=== PATIENT | male | born 1965 | race Two or more races ===

== ENCOUNTER 2017-06-26 23:53 | Emergency (ER) | payer SELFPAY ==
[~2017-06-26] VITALS: Ht 162.6 cm; Wt 49.9 kg
--- NOTE | 2017-06-27 00:06 | NUR ---
Unable to obtain medical history, allergies and medications from pt at this time.
[2017-06-27 00:33] LABS: BASOPHILS % (AUTO) 0.3 % (0.0-2.0); EOSINOPHILS # (AUTO) 0.1 K/uL (0.0-0.7); EOSINOPHILS % (AUTO) 1.7 % (0.0-7.0); HEMATOCRIT 47.4 % (36.7-47.1); HEMOGLOBIN 16.4 g/dL (12.5-16.3); LYMPHOCYTES # (AUTO) 2.3 K/uL (20.0-40.0); LYMPHOCYTES % (AUTO) 46.2 % (20.5-51.5); MEAN CORPUSCULAR HEMOGLOBIN 33.1 uug (23.8-33.4); MEAN CORPUSCULAR HGB CONC 35 g/dL (32.5-36.3); MEAN CORPUSCULAR VOLUME 95.9 fL (73.0-96.2); MONOCYTES # (AUTO) 0.4 K/uL (2.0-10.0); MONOCYTES % (AUTO) 8.2 % (0.0-11.0); NEUTROPHILS # (AUTO) 2.2 K/uL (1.8-8.9); NEUTROPHILS % (AUTO) 43.6 % (38.5-71.5); PLATELET COUNT (AUTO) 197 K/uL (152-348); RED BLOOD CELL COUNT(AUTO) 4.94 MIL/uL (4.06-5.63)
--- NOTE | 2017-06-27 00:46 | NUR ---
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 PO2=97%ON [place]. PT HAD CLOTHS REMOVED, T-SHIRT AND DRESS SHIRT HAD TO BE CUT OFF, PT UNCOOPERATIVE, ORDERED CLOTHS REMOVAL FOR PHYSICAL ASSESSMENT. PT POSITIONED FOR COMFORT AND AT THIS TIME IS SLEEPING.
[2017-06-27 00:54] LABS: ALANINE AMINOTRANSFERASE 38 U/L (16-63); ALKALINE PHOSPHATASE 110 U/L (50-136); ASPARTATE AMINOTRANSFERASE 38 U/L (15-37); BILIRUBIN,DIRECT 0.1 mg/dL (0.0-0.2); BILIRUBIN,TOTAL 0.3 mg/dL (0.2-1.0); CARBON DIOXIDE 24 mmol/L (21-32); CHLORIDE 107 mmol/L (98-107); CREATININE 0.7 mg/dL (0.6-1.3); GLUCOSE 102 mg/dL (74-106); POTASSIUM 3.9 mmol/L (3.5-5.1); TOTAL PROTEIN, SERUM 8.2 g/dL (6.4-8.2); UREA NITROGEN, BLOOD 8 mg/dL (7-18)
[2017-06-27 01:00] LABS: ACETAMINOPHEN < 2.0 ug/mL (10-30)
[2017-06-27 01:04] LABS: ETHANOL 364 MG/DL (0-0)
[2017-06-27 01:10] LABS: *AMPHETAMINE, URINE NEGATIVE (NEGATIVE); *BARBITURATE, URINE NEGATIVE (NEGATIVE); *CANNABINOID, URINE NEGATIVE (NEGATIVE); *COCCAINE, URINE NEGATIVE (NEGATIVE); *OPIATE, URINE NEGATIVE (NEGATIVE); *PHENCYCLIDINE SCREEN,URINE NEGATIVE (NEGATIVE)
--- NOTE | 2017-06-27 02:29 | NUR ---
pt sleeping, no distress noted
[2017-06-27] MEDS: MAG HYDROX/AL HYDROX/SIMETH 30 ML LIQUID UDC PO ONE (04:33)
[2017-06-27] MEDS ORDERED: MAG HYDROX/AL HYDROX/SIMETH 30 ML LIQUID UDC ONE (04:48)
--- NOTE | 2017-06-27 06:44 | NUR ---
pt awoke and ambulated w/o diff. pt then got dressed and i d/c'd pt home. pt was given aci. pt took all belongings.
[2017-06-27 06:46] VITALS: BP 129/62
== END 2017-06-27 06:47 | disposition home or self-care (01) ==
LOC: ER 23:54
DX: F10.229 Alcohol dependence with intoxication, unspecified (principal)
CPT/HCPCS: 36415; 80307; 85025; 93005; A4663; G0480; G0480-TC